=== PATIENT | male | born 2000 | race African-American/Black ===

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

== ENCOUNTER 2022-05-02 13:02 | Emergency (ER) | payer MEDICAID ==
[~2022-05-02] VITALS: Ht 170.2 cm; Wt 58.0 kg
[2022-05-02 15:49] LABS: BASOPHILS % 1.1 % (0.0-2.0); EOSINOPHILS % 0.5 % (0.0-5.0); HEMATOCRIT. 39.6 % (42.0-52.0); HEMOGLOBIN. 13.3 g/dL (14.0-18.0); LYMPHOCYTES % 44.7 % (20.0-50.0); MEAN CORPUSCULAR HEMOGLOBIN 31.9 pg (28.0-32.0); MEAN CORPUSCULAR VOLUME 95.3 fL (80.0-94.0); MEAN PLATELET VOLUME 7.4 fl (7.4-10.4); MONOCYTES % 7.7 % (2.0-8.0); PLATELET 287 x1000/uL (130-400); RED BLOOD CELL COUNT 4.15 mill/uL (4.7-6.1); RED CELL DISTRIBUTION WIDTH 12.5 % (11.6-14.6)
[2022-05-02 16:01] LABS: CHLORIDE 108 mEq/L (98-107)
[2022-05-02 16:33] LABS: CLARITY URINE CLEAR (CLEAR); COLOR URINE YELLOW (YELLOW); KETONES URINE TRACE (NEGATIVE); LEUKOCYTE ESTERASE URINE TRACE (NEGATIVE); NITRITE URINE NEGATIVE (NEGATIVE); OCCULT BLOOD URINE NEGATIVE (NEGATIVE); PROTEIN URINE NEGATIVE (NEGATIVE); SPECIFIC GRAVITY URINE 1.028 (1.005-1.030)
[2022-05-02] MEDS ORDERED: NITR-87 MT (19:14)
[2022-05-02 20:02] LABS: HEPATITIS B SURFACE ANTIGEN NEGATIVE
[2022-05-02 20:33] VITALS: BP 132/72
[2022-05-05 09:07] LABS: NEISSERIA GONORRHOEAE NAA Negative (Negative)
== END 2022-05-02 20:35 | disposition home or self-care (01) ==
LOC: ER 13:02
DX: N39.0 Urinary tract infection, site not specified (principal); R94.5 Abnormal results of liver function studies
CPT/HCPCS: 36415; 76700; 80053; 81003; 85025; 86705; 86709; 86803; 87340; 87491; 87591; 99284

== ENCOUNTER 2022-11-01 08:42 | Emergency (ER) | payer MEDICAID, OTHER ==
[~2022-11-01 08:42] MED LIST: NITR-87 MT
== END 2022-11-01 10:00 | disposition left against medical advice (07) ==
LOC: ER 09:53
DX: Z53.21 Procedure and treatment not carried out due to patient leaving prior to being seen by health care provider (principal)